=== PATIENT | male | born 1965 | race Caucasian/White ===

== ENCOUNTER 2021-11-14 06:16 | Inpatient (IN) ==
[2021-11-14] MEDS ORDERED: Aspirin 325 MG TABLET PO ONE (06:31)
[2021-11-14] MEDS ORDERED: *HR* Heparin 5,000 UNIT/ML VIAL IVP ONE (06:33)
[2021-11-14] MEDS ORDERED: *HR* Ticagrelor 90 MG TABLET PO ONE (06:33)
[2021-11-14] MEDS ORDERED: Heparin 1,000 UNITS/500 mL 500 ML ONE (06:37)
[2021-11-14] MEDS ORDERED: 0.9 % Sodium Chloride 2,000 ML ONE (06:37)
[2021-11-14] MEDS ORDERED: *HR* Bivalirudin 250 MG VIAL IVC ONE (06:37)
[2021-11-14] MEDS ORDERED: *HR* Heparin 10,000 UNIT/10 ML VIAL ONE (06:37)
[2021-11-14] MEDS ORDERED: Nitroglycerin 1,000 MCG/5 ML VIAL IV ONE (06:38)
[2021-11-14] MEDS ORDERED: Iopamidol - 370 200 ML INFUS..BTL ONE (06:38)
[2021-11-14] MEDS ORDERED: Morphine Sulfate 2 MG/ML SYRINGE IVP PRN (06:43)
[2021-11-14 06:47] LABS: Hemoglobin 15.2 g/dL (12.9-16.9); Mean Corpuscular Hemoglobin 30.1 pg (28.0-33.3); Mean Corpuscular Volume 91.1 fL (83.0-100.0); Mean Platelet Volume 9.7 fL (9.4-12.4); Platelet Count 273 K/mcL (140-400); Red Blood Count 5.05 M/mcL (4.19-5.50); Red Cell Distribution Width 12.9 % (11.5-14.5)
[2021-11-14] MEDS ORDERED: *HR* Midazolam HCl 2 MG/2 ML VIAL ONE (06:49)
[2021-11-14] MEDS ORDERED: *HR* FentaNYL (PF) 100 MCG/2 ML VIAL ONE (06:49)
[2021-11-14 06:54] LABS: Prothrombin Time 10.6 Seconds (9.4-12.1)
[2021-11-14] MEDS ORDERED: *HR* Atropine Sulfate 1 MG/10 ML SYRINGE ONE ×2 (07:01→09:44)
[2021-11-14] MEDS ORDERED: Perflutren Lipid Microsphere 1.3 ML in 0.9 % Sodium Chloride 8.7 ML IVP PRN (07:39)
[2021-11-14] MEDS ORDERED: Nitroglycerin 0.4 MG TAB.SUBL SL PRN (07:39)
[2021-11-14] MEDS ORDERED: 0.9 % Sodium Chloride 1,000 ML IVC SCH (07:45)
[2021-11-14] MEDS ORDERED: Morphine Sulfate 2 MG/ML SYRINGE ONE (07:52)
[2021-11-14] MEDS ORDERED: Morphine Sulfate 2 MG/ML SYRINGE IVP ONE (07:56)
[2021-11-14] MEDS ORDERED: Metoprolol XL (24 HR) Succ 25 MG TAB.ER.24H PO SCH (09:00)
[2021-11-14] MEDS: Morphine Sulfate 2 MG/ML SYRINGE IVP PRN ×3 (10:09→14:07)
[2021-11-14] MEDS: Metoprolol XL (24 HR) Succ 25 MG TAB.ER.24H PO SCH (10:17)
[2021-11-14 11:41] LABS: BUN/Creatinine Ratio 13 (6-26); Blood Urea Nitrogen 13 mg/dL (6-20); Calcium 9.2 mg/dL (8.6-10.3); Carbon Dioxide 29 mEq/L (23-29); Chloride 103 mEq/L (98-107); Glucose 112 mg/dL (70-105); Osmolality,Calculated 279 (280-300); Potassium 4.4 mEq/L (3.5-5.1); Sodium 134 mEq/L (136-145); eGFR For African Americans > 60 (> 60); eGFR For Non-African Americans > 60 (> 60)
[2021-11-14] MEDS ORDERED: *HR* Buprenorphine HCl 8 MG TAB.SUBL SL ONE (16:15)
[2021-11-14] MEDS: Gabapentin 300 MG CAPSULE PO SCH ×2 (16:18→19:56)
[2021-11-14] MEDS: *HR* Ticagrelor 90 MG TABLET PO SCH (19:56)
[2021-11-14] MEDS ORDERED: QUEtiapine Fumarate 300 MG TABLET PO SCH (21:00)
[2021-11-15] MEDS: Morphine Sulfate 2 MG/ML SYRINGE IVP PRN (02:49)
[2021-11-15 06:36] LABS: Basophils % 0.4 %; Eosinophils # 0.2 K/mcL (0.0-0.6); Hematocrit 39.6 % (37.5-50.1); Immature Granulocytes % 0.4 % (0-4); Lymphocytes % 23.4 %; Mean Corpuscular HGB Conc 33.1 g/dL (31.6-35.5); Mean Corpuscular Hemoglobin 29.7 pg (28.0-33.3); Mean Corpuscular Volume 89.8 fL (83.0-100.0); Mean Platelet Volume 10.1 fL (9.4-12.4); Monocytes # 0.7 K/mcL (0.0-1.3); Monocytes % 8.7 %; Neutrophils # 5.4 K/mcL (1.6-8.9); Platelet Count 236 K/mcL (140-400); Red Blood Count 4.41 M/mcL (4.19-5.50); Red Cell Distribution Width 12.8 % (11.5-14.5); Segmented Neutrophils % 65.1 %; White Blood Count 8.4 K/mcL (4.3-11.1)
[2021-11-15 06:39] LABS: Hemoglobin 13.1 g/dL (12.9-16.9)
[2021-11-15 07:01] LABS: Troponin I 53.16 ng/mL (< 0.04)
[2021-11-15 07:20] LABS: BUN/Creatinine Ratio 11 (6-26); Blood Urea Nitrogen 10 mg/dL (6-20); Calcium 8.8 mg/dL (8.6-10.3); Carbon Dioxide 24 mEq/L (23-29); Chloride 105 mEq/L (98-107); Chol/HDL Ratio 10.5 (0-4.9); Cholesterol 273 mg/dL (< 200); Glucose 104 mg/dL (70-105); HDL Cholesterol 26 mg/dL (40-59); Osmolality,Calculated 283 (280-300); Potassium 3.7 mEq/L (3.5-5.1); Sodium 137 mEq/L (136-145); Triglycerides 567 mg/dL (< 150); eGFR For African Americans > 60 (> 60); eGFR For Non-African Americans > 60 (> 60)
[2021-11-15] MEDS: *HR* Ticagrelor 90 MG TABLET PO SCH ×2 (07:46→21:10)
[2021-11-15] MEDS: Gabapentin 300 MG CAPSULE PO SCH ×3 (07:47→21:10)
[2021-11-15] MEDS: Metoprolol XL (24 HR) Succ 25 MG TAB.ER.24H PO SCH (07:48)
[2021-11-15] MEDS ORDERED: Venlafaxine XR (24 HR) 150 MG CAP.ER.24H PO SCH (09:00)
[2021-11-15] MEDS ORDERED: *HR* Buprenorphine HCl 8 MG TAB.SUBL SL SCH (09:00)
[2021-11-15] MEDS ORDERED: lisinopriL 20 MG TABLET PO SCH (09:00)
[2021-11-15] MEDS ORDERED: Aspirin 81 MG TAB.CHEW PO SCH (09:00)
[2021-11-15] MEDS ORDERED: Venlafaxine XR (24 HR) 75 MG CAP.ER.24H PO SCH (09:00)
[2021-11-15] MEDS ORDERED: Morphine Sulfate 2 MG/ML SYRINGE IVP PRN (12:59)
[2021-11-15] MEDS ORDERED: Nitroglycerin 0.4 MG TAB.SUBL SL PRN (12:59)
[2021-11-15] MEDS ORDERED: QUEtiapine Fumarate 300 MG TABLET PO SCH (21:00)
[2021-11-16 02:28] LABS: Basophils % 0.5 %; Eosinophils # 0.2 K/mcL (0.0-0.6); Eosinophils % 2.4 %; Hematocrit 41.6 % (37.5-50.1); Hemoglobin 13.5 g/dL (12.9-16.9); Immature Granulocytes % 0.6 % (0-4); Lymphocytes # 2.1 K/mcL (0.6-4.6); Lymphocytes % 26.8 %; Mean Corpuscular HGB Conc 32.5 g/dL (31.6-35.5); Mean Corpuscular Hemoglobin 29.8 pg (28.0-33.3); Mean Corpuscular Volume 91.8 fL (83.0-100.0); Mean Platelet Volume 10.1 fL (9.4-12.4); Monocytes # 0.8 K/mcL (0.0-1.3); Monocytes % 10.1 %; Neutrophils # 4.7 K/mcL (1.6-8.9); Platelet Count 225 K/mcL (140-400); Red Blood Count 4.53 M/mcL (4.19-5.50); Red Cell Distribution Width 12.9 % (11.5-14.5); Segmented Neutrophils % 59.6 %; White Blood Count 7.9 K/mcL (4.3-11.1)
[2021-11-16 02:45] LABS: BUN/Creatinine Ratio 14 (6-26); Blood Urea Nitrogen 14 mg/dL (6-20); Calcium 9.2 mg/dL (8.6-10.3); Carbon Dioxide 26 mEq/L (23-29); Chloride 103 mEq/L (98-107); Glucose 87 mg/dL (70-105); Osmolality,Calculated 282 (280-300); Potassium 3.8 mEq/L (3.5-5.1); Sodium 136 mEq/L (136-145); eGFR For African Americans > 60 (> 60); eGFR For Non-African Americans > 60 (> 60)
[2021-11-16 07:35] VITALS: TEMP 97.9; O2SAT 97
[2021-11-16] MEDS ORDERED: Venlafaxine XR (24 HR) 150 MG CAP.ER.24H PO SCH (09:00)
[2021-11-16] MEDS ORDERED: Metoprolol XL (24 HR) Succ 25 MG TAB.ER.24H PO SCH ×2 (09:00)
[2021-11-16] MEDS ORDERED: lisinopriL 20 MG TABLET PO SCH (09:00)
[2021-11-16] MEDS ORDERED: Aspirin 81 MG TAB.CHEW PO SCH (09:00)
[2021-11-16] MEDS ORDERED: *HR* Buprenorphine HCl 8 MG TAB.SUBL SL SCH (09:00)
[2021-11-16] MEDS ORDERED: Venlafaxine XR (24 HR) 75 MG CAP.ER.24H PO SCH (09:00)
[2021-11-16] MEDS: *HR* Ticagrelor 90 MG TABLET PO SCH (09:48)
[2021-11-16] MEDS: Gabapentin 300 MG CAPSULE PO SCH (09:49)
[2021-11-16 09:55] VITALS: BP 87/62; PULSE 80
== END 2021-11-16 10:30 | disposition home or self-care (01) | DRG 247 ==
LOC: EMEROOARM 06:16 → ICNU 06:16 → 2NENU 11-16 07:27
PROVIDERS: ADMIT Internal Medicine; ATTEND Internal Medicine